=== PATIENT | male | born 1975 | race Caucasian/White ===

== ENCOUNTER 2018-09-29 23:22 | Emergency (ER) | payer SELFPAY ==
[~2018-09-29] VITALS: Ht 167.6 cm; Wt 58.0 kg
[~2018-09-29 23:22] MED LIST: HYDR25SU23 PR
[2018-09-29 23:27] VITALS: BP 147/86; PULSE 120; RESP 18; Ht 167.6 cm; Wt 58.0 kg
== END 2018-09-29 23:49 | disposition left against medical advice (07) ==
LOC: E/R 23:22
DX: Z53.21 Procedure and treatment not carried out due to patient leaving prior to being seen by health care provider (principal)
CPT/HCPCS: 93005